=== PATIENT | female | born 1990 | race Caucasian/White ===

== ENCOUNTER 2016-06-11 09:51 | Emergency (ER) | payer BC ==
[~2016-06-11] VITALS: Ht 160 cm; Wt 118.8 kg
[2016-06-11] MEDS ORDERED: IV NORMAL SALINE 1000ML BAG 1,000 ML IV SCH (10:51)
[2016-06-11] MEDS ORDERED: ONDANSETRON PF 4 MG/2 ML VIAL. IV ONE (11:00)
[2016-06-11] MEDS ORDERED: MORPHINE SULFATE 4 MG/ML DISP.SYRIN. IV/SQ PRN (11:00)
[2016-06-11 11:05] LABS: BASO # 0.1 x10^3/uL (0.0-0.2); BASO % 1 % (0-3); EOS % 1 % (0-3); HEMATOCRIT 40.8 % (36.0-47.0); HEMOGLOBIN 13.4 g/dL (12.0-15.5); LYMPH # 2.5 x10^3/uL (1.0-4.8); LYMPH % 25 % (24-48); MEAN CORPUSCULAR HEMOGLOBIN 29 pg (25-35); MEAN CORPUSCULAR HGB CONC 33 g/dL (31-37); MEAN CORPUSCULAR VOLUME 89 fL (79-100); MONO % 7 % (0-9); NEUT % 67 % (31-73); PLATELET COUNT 226 x10^3/uL (140-400); RED BLOOD COUNT 4.61 x10^6/uL (3.50-5.40); RED CELL DISTRIBUTION WIDTH 12.7 % (11.5-14.5); WHITE BLOOD COUNT 9.8 x10^3/uL (4.0-11.0)
[2016-06-11 11:20] LABS: CALCIUM 9.1 mg/dL (8.5-10.1); CREATININE 0.8 mg/dL (0.6-1.0); POTASSIUM 4.4 mmol/L (3.5-5.1)
--- NOTE | 2016-06-11 11:21 | PHYS DOC ---
Past Medical History Past Medical History: No Pertinent History Past Surgical History: Tonsillectomy, Other Additional Past Surgical Histo: wisdom teeth extraction, eye surgery x3 Additional Information: Nonsmoker Alcohol Use: None Drug Use: None Adult General Chief Complaint Chief Complaint: ABDOMINAL PAIN [facility] HPI Patient is a 26 year old female who presents with lower abdominal pain starting at 0430 this morning that woke her from her sleep. She has nausea without vomiting. She's had 4 episodes of loose stools with blood in the stool. Feeling lightheaded with a near syncopal episode. She denies loss of consciousness. She denies any fevers or urinary symptoms. She denies history of GI problems. She has not had any recent antibiotics or travel. Her PCP is Dr. Madeline Bower. Review of Systems Review of Systems Constitutional: Denies fever or chills. [] Eyes: Denies change in visual acuity, redness, or eye pain. [] HENT: Denies ear pain, nasal congestion or sore throat. [] Respiratory: Denies cough or shortness of breath. [] Cardiovascular: Denies chest pain, palpitations or edema. [] GI: Denies vomiting. Reports lower abdominal pain, nausea, and diarrhea with bloody stools. : Denies dysuria, hematuria or urinary frequency. [] Musculoskeletal: Denies back pain or joint pain. [] Integument: Denies rash or skin lesions. [] Neurologic: Denies headache, focal weakness or sensory changes. [] Endocrine: Denies polyuria or polydipsia. [] Psych: Denies anxiety or depression. [] All systems reviewed and negative unless otherwise stated in the HPI. Current Medications Current Medications Current Medications Medications (Trade) Dose Ordered Sig/Trudy Start Time Stop Time Status Last Admin Dose Admin Fentanyl Citrate (Fentanyl 2ml Vial) 50 mcg PRN Q15MIN PRN 06/11/16 12:15 06/11/16 13:49 DC Info (Do NOT chart on this entry -- for MONITORING) 1 each PRN DAILY PRN 06/11/16 12:00 06/11/16 13:49 DC Iohexol (Omnipaque 300 Mg/ml) 75 ml 1X ONCE 06/11/16 12:00 06/11/16 12:01 DC 06/11/16 12:45 75 ML Morphine Sulfate 4 mg 4 mg PRN Q15MIN PRN 06/11/16 11:00 06/11/16 12:04 DC Ondansetron HCl (Zofran) 4 mg 1X ONCE 06/11/16 11:00 06/11/16 11:01 DC 06/11/16 11:56 4 MG Sodium Chloride (Iv Sodium Chloride 0.9% 1000ml Bag) 1,000 ml @ 1,000 mls/hr Q1H 06/11/16 10:51 06/11/16 11:50 DC 06/11/16 11:53 1,000 MLS/HR Allergies Allergies Allergies Coded Allergies Type Severity Reaction Last Updated Verified codeine Allergy Severe swelling 06/11/16 Yes doxycycline Allergy Severe throat swelling 06/11/16 Yes milk Adverse Reaction Mild stomachache 06/11/16 Yes Physical Exam Physical Exam Constitutional: Well developed, well nourished, no acute distress, non-toxic appearance. [] HENT: Normocephalic, atraumatic, oropharynx moist. [] Eyes: PERRLA, EOMI, conjunctiva normal, no discharge. [] Neck: Normal range of motion, no tenderness, supple, no stridor. [] Cardiovascular: Heart rate regular rhythm, no murmur. [] Lungs & Thorax: Bilateral breath sounds clear to auscultation without wheezes, rales, or rhonchi. [] Abdomen: Bowel sounds normal, soft, suprapubic tenderness, no masses, no pulsatile masses. [] Rectal: There is a small non-thrombosed external hemorrhoid. There is a scant amount of stool in the rectal vault that appears grossly positive for blood. Skin: Warm, dry, no erythema, no rash. [] Back: No midline tenderness, no CVA tenderness. [] Extremities: No tenderness, ROM intact, no edema. Distal pulses equal bilaterally. [] Neurologic: Alert and oriented X 3, normal motor function, normal sensory function, no focal deficits noted. [] Psychologic: Affect normal, judgement normal, mood normal. [] Current Patient Data Vital Signs Vital Signs Date Time Temp Pulse Resp B/P Pulse Ox O2 Delivery O2 Flow Rate FiO2 06/11/16 13:04 72 18 113/74 99 Room Air 06/11/16 10:29 98.4 98.4 Lab Values Laboratory Tests Test 06/11/16 10:30 06/11/16 11:45 06/11/16 12:05 White Blood Count 9.8x10^3/uL (4.0-11.0) Red Blood Count 4.61x10^6/uL (3.50-5.40) Hemoglobin 13.4g/dL (12.0-15.5) Hematocrit 40.8% (36.0-47.0) Mean Corpuscular Volume 89fL (79-100) Mean Corpuscular Hemoglobin 29pg (25-35) Mean Corpuscular Hemoglobin Concent 33g/dL (31-37) Red Cell Distribution Width 12.7% (11.5-14.5) Platelet Count 226x10^3/uL (140-400) Neutrophils (%) (Auto) 67% (31-73) Lymphocytes (%) (Auto) 25% (24-48) Monocytes (%) (Auto) 7% (0-9) Eosinophils (%) (Auto) 1% (0-3) Basophils (%) (Auto) 1% (0-3) Neutrophils # (Auto) 6.5x10^3uL (1.8-7.7) Lymphocytes # (Auto) 2.5x10^3/uL (1.0-4.8) Monocytes # (Auto) 0.7x10^3/uL (0.0-1.1) Eosinophils # (Auto) 0.1x10^3/uL (0.0-0.7) Basophils # (Auto) 0.1x10^3/uL (0.0-0.2) Sodium Level 140mmol/L (136-145) Potassium Level 4.4mmol/L (3.5-5.1) Chloride Level 105mmol/L (98-107) Carbon Dioxide Level 25mmol/L (21-32) Anion Gap 10 (6-14) Blood Urea Nitrogen 15mg/dL (7-20) Creatinine 0.8mg/dL (0.6-1.0) Estimated GFR (Cockcroft-Gault) 86.0 BUN/Creatinine Ratio 19 (6-20) Glucose Level 102mg/dL (70-99) H Calcium Level 9.1mg/dL (8.5-10.1) Total Bilirubin 0.4mg/dL (0.2-1.0) Aspartate Amino Transferase (AST) 22U/L (15-37) Alanine Aminotransferase (ALT) 11U/L (14-59) L Alkaline Phosphatase 68U/L (46-116) Total Protein 7.2g/dL (6.4-8.2) Albumin 3.6g/dL (3.4-5.0) Albumin/Globulin Ratio 1.0 (1.0-1.7) Lipase 106U/L (73-393) Stool Occult Blood Positive (NEG) Urine Collection Type Void Urine Color Yellow Urine Clarity Clear Urine pH 7.0 Urine Specific Conde 1.010 Urine Protein Negativemg/dL (NEG-TRACE) Urine Glucose (UA) Negativemg/dL (NEG) Urine Ketones (Stick) Negativemg/dL (NEG) Urine Blood Negative (NEG) Urine Nitrite Negative (NEG) Urine Bilirubin Negative (NEG) Urine Urobilinogen Dipstick 0.2mg/dL (0.2 mg/dL) Urine Leukocyte Esterase Negative (NEG) Urine RBC 0/HPF (0-2) Urine WBC Occ/HPF (0-4) Urine Squamous Epithelial Cells Mod/LPF Urine Bacteria 0/HPF (0-FEW) Urine Test Negative (NEG) Laboratory Tests 06/11/16 10:30 Laboratory Tests 06/11/16 10:30 EKG EKG [] Radiology/Procedures Radiology/Procedures REASON: lower abd pain, blood in stool PROCEDURE: ABD PELV W/ IV CONTRAST ONLY EXAM: Abdomen and pelvis CT with intravenous contrast. HISTORY: Pain and bloody stools. TECHNIQUE: Computed tomographic images of the abdomen and pelvis were obtained following the administration of 75 cc Omnipaque 300 intravenous contrast. Multiplanar reformatting was performed. One or more of the following individualized dose reduction techniques were utilized for this examination: 1. Automated exposure control. 2. Adjustment of the mA and/or kV according to patient size. 3. Use of iterative reconstruction technique. COMPARISON: None. FINDINGS: Evaluation of the lower thorax is unremarkable. There is hepatic steatosis and mild hepatomegaly. The gallbladder, pancreas and adrenal glands are unremarkable. The spleen is unremarkable. The kidneys are unremarkable. The appendix is unremarkable. There is mild mucosal thickening involving the rectum. There is no bowel obstruction. No pathologically enlarged lymph node is seen. There are multiple ovarian follicles with a dominant left ovarian follicular cyst measuring 2.3 cm. No suspicious osseous lesion is seen. IMPRESSION: 1. Mild mucosal thickening involving the rectum, likely due to under distention and not clearly within limits to suggest proctitis/colitis. 2. Hepatic steatosis and mild hepatomegaly. 3. 2.3 cm dominant left ovarian follicular cyst. Course & Med Decision Making Course & Med Decision Making Pertinent Labs and Imaging studies reviewed. (See chart for details) Patient is a 26-year-old female presents with lower abdominal pain and blood in her stool starting early this morning. Upon arrival to the emergency department , her vital signs are stable. On exam, the abdomen is soft and nonsurgical with tenderness in the suprapubic region. Stool is Hemoccult positive. There are no other significant laboratory abnormalities. Urine is negative for infection. CT of the abdomen and pelvis shows mucosal thickening involving the rectum with possible colitis/proctitis. The patient's pain improved with IV fentanyl while in the emergency department. She is discharged home with prescriptions for Cipro , Flagyl, Garfield, and Zofran. She is given contact information for GI for follow- up. Return precautions were discussed. She verbalizes understanding and agrees with plan. Dragon Disclaimer Dragon Disclaimer This electronic medical record was generated, in whole or in part, using a voice recognition dictation system. Departure Departure Impression: Primary Impression: Proctitis Additional Impression: Abdominal pain Disposition: 01 HOME, SELF-CARE Condition: STABLE Referrals: MADELINE BOWER MD (PCP) DEION MALDONADO MD Patient Instructions: Abdominal Pain, [id number], Proctitis Additional Instructions: You were seen today for abdominal pain and blood in your stools. Your CT scan shows an infection at the end of your colon and in the rectum. Please complete all the prescribed antibiotics, even if you are feeling better. Please take the prescribed pain medication as directed. Do not drive or operate heavy machinery while taking pain medication. Please follow-up with the GI doctor listed below. Return to the emergency department if you have severe pain, fever, increased blood in your stool, or other new or concerning symptoms. Scripts Ciprofloxacin Hcl (Cipro)500 Mg Tablet1 Tab PO BID #14 TAB Prov:HARRIET HEAD 06/11/16 Ondansetron (Zofran Odt)4 Mg Tab.rapdis1 Tab SL Q8HRS #10 TAB Prov:HARRIET HEAD 1/9/17 Hydrocodone/Apap 5-325 (Garfield 5-325 Tablet)1 Each Tablet1 Tab PO PRN Q6HRS PRN PAIN #20 TAB Prov:HARRIET HEAD 06/11/16 Metronidazole (Flagyl)500 Mg Tablet1 Tab PO BID #14 TAB Prov:HARRIET HEAD 06/11/16 Problem Qualifiers Additional Impression: Abdominal pain Abdominal location: lower abdomen, unspecified Qualified Code: R10.30 - Lower abdominal pain, unspecified HARRIET HEAD Jun 11, 2016 11:21
[2016-06-11 11:25] LABS: ALBUMIN 3.6 g/dL (3.4-5.0); TOTAL BILIRUBIN 0.4 mg/dL (0.2-1.0); TOTAL PROTEIN 7.2 g/dL (6.4-8.2)
[2016-06-11 11:59] LABS: NEG OBC FOB NEG; POS OBC FOB POS
[2016-06-11] MEDS ORDERED: IOHEXOL 300 MG/ML 100ML VIAL. IV ONE (12:00)
[2016-06-11] MEDS ORDERED: CONTRAST GIVEN MC PRN (12:00)
[2016-06-11] MEDS ORDERED: FENTANYL PF 100 MCG/2 ML VIAL. IV PRN (12:15)
[2016-06-11 12:44] LABS: NEG OBC UR NEG
[2016-06-11 12:45] LABS: BILIRUBIN,URINE NEGATIVE (NEG); GLUCOSE,URINE NEGATIVE (NEG); NITRITE,URINE NEGATIVE (NEG); POS OBC UR POS; PROTEIN,URINE NEGATIVE (NEG-TRACE); UROBILINOGEN,URINE 0.2 mg/dL (0.2 mg/dL)
[2016-06-11 13:01] LABS: BACTERIA,URINE 0 /HPF (0-FEW); RBC,URINE 0 /HPF (0-2); SQUAMOUS EPITHELIAL CELL,UR MOD /LPF; WBC,URINE OCC /HPF (0-4)
[2016-06-11 13:04] VITALS: BP 113/74
--- NOTE | 2016-06-11 13:12 | RAD ---
EXAM: Abdomen and pelvis CT with intravenous contrast. HISTORY: Pain and bloody stools. TECHNIQUE: Computed tomographic images of the abdomen and pelvis were obtained following the administration of 75 cc Omnipaque 300 intravenous contrast. Multiplanar reformatting was performed. One or more of the following individualized dose reduction techniques were utilized for this examination: 1. Automated exposure control. 2. Adjustment of the mA and/or kV according to patient size. 3. Use of iterative reconstruction technique. COMPARISON: None. FINDINGS: Evaluation of the lower thorax is unremarkable. There is hepatic steatosis and mild hepatomegaly. The gallbladder, pancreas and adrenal glands are unremarkable. The spleen is unremarkable. The kidneys are unremarkable. The appendix is unremarkable. There is mild mucosal thickening involving the rectum. There is no bowel obstruction. No pathologically enlarged lymph node is seen. There are multiple ovarian follicles with a dominant left ovarian follicular cyst measuring 2.3 cm. No suspicious osseous lesion is seen. IMPRESSION: 1. Mild mucosal thickening involving the rectum, likely due to under distention and not clearly within limits to suggest proctitis/colitis. 2. Hepatic steatosis and mild hepatomegaly. 3. 2.3 cm dominant left ovarian follicular cyst. PQRS Compliance Statement: One or more of the following individualized dose reduction techniques were utilized for this examination: 1. Automated exposure control 2. Adjustment of the mA and/or kV according to patient size 3. Use of iterative reconstruction technique
[2016-06-11] MEDS ORDERED: CIPR500T94 PO (13:27)
[2016-06-11] MEDS ORDERED: HYDR-971 PO (13:27)
[2016-06-11] MEDS ORDERED: METR500T PO (13:27)
[2016-06-11] MEDS ORDERED: ONDA4TAB10 SL (13:27)
== END 2016-06-11 13:48 | disposition home or self-care (01) ==
LOC: ER 09:51
DX: K62.89 Other specified diseases of anus and rectum (principal); R42 Dizziness and giddiness; Z88.1 Allergy status to other antibiotic agents; Z88.5 Allergy status to narcotic agent; Z91.011 Allergy to milk products
CPT/HCPCS: 36415; 74177; 80053; 81001; 81025; 82274; 83690; 85027; 96361; 96374; 99285; J2405; J7030; Q9967